=== PATIENT | female | born 1995 | race Caucasian/White ===

== ENCOUNTER 2017-11-12 15:27 | Emergency (ER) | payer OTHER ==
[~2017-11-12] VITALS: Ht 167.6 cm; Wt 76.4 kg
[2017-11-12 15:40] VITALS: BP 164/100; PULSE 92; RESP 18; TEMP 97.5; O2SAT 100
[2017-11-12] MEDS ORDERED: SODIUM CHLOR 0.9% 1000 ML INJ 1,000 ML IV SCH (17:26)
[2017-11-12] MEDS ORDERED: LIDOCAINE VISCOUS 2% SOLN 15 ML UDC PO ONE (17:30)
[2017-11-12] MEDS ORDERED: ALUMINUM/MAGNESIUM/SIMETH 30 ML CUP PO ONE (17:30)
[2017-11-12] MEDS ORDERED: KETOROLAC TROMETHAMINE 30 MG/ML (IVP) VIAL IV PUSH ONE (17:30)
[2017-11-12] MEDS ORDERED: PANTOPRAZOLE SODIUM 40 MG VIAL IVP ONE (17:30)
[2017-11-12] MEDS ORDERED: ONDANSETRON HCL 4 MG/2 ML VIAL IVP ONE (17:30)
--- NOTE | 2017-11-12 17:33 | PD ---
HPI Chief Complaint: Flank/Kidney Pain Time Seen by Provider: 17:17 Travel History International Travel<30 days: No Contact w/Intl Traveler<30days: No Traveled to known affect area: No History of Present Illness HPI This is a 22-year-old otherwise healthy female who presents for evaluation. 5 days she has been expressing pain in her bilateral mid to lower back region. She reports that the pain is intermittent and sharp with no obvious aggravating or relieving factors. She reports occasionally the pain radiates in the left upper quadrant of the abdomen but not currently. She reports associated nausea and dizziness sensation. She was initially seen at her school clinic 5 days ago and prescribed Cipro for possible UTI although she reports that the urinalysis only showed a small amount of blood. Symptoms persisted so she was seen at an emergency room in [place] 3 days ago. There she underwent blood work and a CT of the renal pelvis without contrast. Reportedly her lab work was unremarkable. She was diagnosed with back pain and viral syndrome and prescribed another course of Cipro as well as Flexeril, Zofran, tramadol. She did not continue the medications filled and she presents today because symptoms have persisted. Denies vaginal bleeding or discharge, vomiting, diarrhea or constipation, fevers or chills, cough, congestion, rash, sore throat. She has no other complaints at this time. [facility] Past Medical History ?: Not LMP: 11/08/2017 Social History Alcohol Use: No Tobacco Use: No Allergies-Medications (Allergen,Severity, Reaction): Coded Allergies: No Known Allergies (Unverified , 11/12/17) Reported Meds & Prescriptions Reported Meds & Active Scripts Active No Active Prescriptions or Reported Medications Review of Systems Except as stated in HPI: all other systems reviewed are Neg Physical Exam Narrative GENERAL: Well-developed well-nourished female no acute distress SKIN: Warm and dry. HEAD: Atraumatic. Normocephalic. EYES: Pupils equal and round. No scleral icterus. No injection or drainage. ENT: No nasal bleeding or discharge. Mucous membranes pink and moist. NECK: Trachea midline. No JVD. CARDIOVASCULAR: Regular rate and rhythm. No murmur appreciated. RESPIRATORY: No accessory muscle use. Clear to auscultation. Breath sounds equal bilaterally. GASTROINTESTINAL: Abdomen soft, non-tender, nondistended. Hepatic and splenic margins not palpable. MUSCULOSKELETAL: No obvious deformities. No clubbing. No cyanosis. No edema. Normal gait. NEUROLOGICAL: Awake and alert. No obvious cranial nerve deficits. Motor grossly within normal limits. Normal speech. Data Data Last Documented VS Vital Signs Date Time Temp Pulse Resp B/P (MAP) Pulse Ox O2 Delivery O2 Flow Rate FiO2 11/12/17 15:40 97.5 92 18 164/100 (121) 100 Orders Orders Urinalysis - C+S If Indicated (11/12/17 15:43) Ed Urine Pregnancytest Poc (11/12/17 15:43) Complete Blood Count With Diff (11/12/17 17:26) Comprehensive Metabolic Panel (11/12/17 17:26) Lipase (11/12/17 17:26) Iv Access Insert/Monitor (11/12/17 17:26) Ondansetron Inj (Zofran Inj) (11/12/17 17:30) Pantoprazole Inj (Protonix Inj) (11/12/17 17:30) Sodium Chlor 0.9% 1000 Ml Inj (Ns 1000 M (11/12/17 17:26) Al-Mag Hy-Si 40-40-4 Mg/Ml Liq (Mag-Al P (11/12/17 17:30) Lidocaine 2% Viscous (Xylocaine 2% Visco (11/12/17 17:30) Ketorolac Inj (Toradol Inj) (11/12/17 17:30) Labs Laboratory Tests Test 11/12/17 16:02 11/12/17 17:46 Urine Color LIGHT-YELLOW Urine Turbidity CLEAR Urine pH 6.0 Urine Specific [place] 1.004 Urine Protein NEG mg/dL Urine Glucose (UA) NEG mg/dL Urine Ketones NEG mg/dL Urine Occult Blood NEG Urine Nitrite NEG Urine Bilirubin NEG Urine Urobilinogen LESS THAN 2.0 MG/DL Urine Leukocyte Esterase NEG Urine RBC LESS THAN 1 /hpf Urine WBC LESS THAN 1 /hpf Urine Squamous Epithelial Cells <1 /hpf Microscopic Urinalysis Comment CULT NOT INDICATED White Blood Count 7.2 TH/MM3 Red Blood Count 5.19 MIL/MM3 Hemoglobin 15.7 GM/DL Hematocrit 44.2 % Mean Corpuscular Volume 85.2 FL Mean Corpuscular Hemoglobin 30.3 PG Mean Corpuscular Hemoglobin Concent 35.6 % Red Cell Distribution Width 12.4 % Platelet Count 230 TH/MM3 Mean Platelet Volume 8.7 FL Neutrophils (%) (Auto) 54.1 % Lymphocytes (%) (Auto) 36.0 % Monocytes (%) (Auto) 8.0 % Eosinophils (%) (Auto) 1.6 % Basophils (%) (Auto) 0.3 % Neutrophils # (Auto) 3.9 TH/MM3 Lymphocytes # (Auto) 2.6 TH/MM3 Monocytes # (Auto) 0.6 TH/MM3 Eosinophils # (Auto) 0.1 TH/MM3 Basophils # (Auto) 0.0 TH/MM3 CBC Comment DIFF FINAL Differential Comment Blood Urea Nitrogen 10 MG/DL Creatinine 1.01 MG/DL Random Glucose 81 MG/DL Total Protein 8.4 GM/DL Albumin 4.4 GM/DL Calcium Level 9.5 MG/DL Alkaline Phosphatase 95 U/L Aspartate Amino Transf (AST/SGOT) 30 U/L Alanine Aminotransferase (ALT/SGPT) 25 U/L Total Bilirubin 1.1 MG/DL Sodium Level 140 MEQ/L Potassium Level 4.2 MEQ/L Chloride Level 106 MEQ/L Carbon Dioxide Level 24.7 MEQ/L Anion Gap 9 MEQ/L Estimat Glomerular Filtration Rate 69 ML/MIN Lipase 115 U/L MDM Medical Decision Making Medical Screen Exam Complete: Yes Emergency Medical Condition: Yes Medical Record Reviewed: Yes Differential Diagnosis Muscle spasm, gastritis, pyelonephritis, renal stone Narrative Course Physical examination is reassuring. She has no CVA tenderness. Her abdomen is soft and nontender. Reassuringly she had a CT of the renal pelvis without contrast performed 2 days ago and was unremarkable. Plan today is to provide her with IV fluids, GI cocktail, Protonix, Toradol and Zofran. Basic lab work and urinalysis have been ordered. Lab work has been reviewed and found to be unremarkable. CBC is unremarkable. CMP reveals a creatinine of 1.01, GFR 69, total protein 8.4 otherwise unremarkable. Urinalysis is completely unremarkable. Urine test is negative. Upon reexamination her pain is currently resolved. Her pain is most likely muscular however she does occasionally have left upper quadrant pain and so presumably this could be a atypical form of gastritis. I recommended that she follow-up with her primary care physician if symptoms persist. She is concerned that the pain may come back tomorrow. She does have prescriptions for tramadol, Flexeril, Zofran from the previous emergency room that she could try using symptoms return. She is stable for discharge from the emergency room standpoint. Diagnosis Primary Impression: Back pain Additional Impressions: Dizziness Nausea Additional Instructions: Please provide the patient a copy of all of her lab work upon discharge. Follow -up with primary care physician. Return for any emergent medical conditions. Med/Other Pt SpecificInfo: No Change to Meds Scripts No Active Prescriptions or Reported Meds Disposition: 01 DISCHARGE HOME Condition: Stable Vignesh Schneider Nov 12, 2017 17:33
[2017-11-12 17:37] LABS: BILIRUBIN, URINE NEG (NEG); BLOOD, URINE NEG (NEG); GLUCOSE,URINE NEG (NEG); KETONE, URINE NEG (NEG); NITRITE,URINE NEG (NEG); SQUAMOUS EPITHELIAL CELL URINE <1 /hpf (0-5); URINE COLOR LIGHT-YELLOW (YELLW/STRAW); URINE LEUKOCYTE ESTERASE NEG (NEG)
[2017-11-12 18:29] LABS: AUTOMATED NEUTROPHIL # 3.9 TH/MM3 (1.8-7.7); BASOPHIL % 0.3 % (0.0-2.0); EOSINOPHIL # 0.1 TH/MM3 (0-0.4); EOSINOPHIL % 1.6 % (0.0-4.0); HEMATOCRIT 44.2 % (35.0-46.0); HEMOGLOBIN 15.7 GM/DL (11.6-15.3); LYMPHOCYTE # 2.6 TH/MM3 (1.0-4.8); MEAN CELL VOLUME 85.2 FL (80.0-100.0); MEAN CORPUSCULAR HEMOGLOBIN 30.3 PG (27.0-34.0); MEAN CORPUSCULAR HGB CONC 35.6 % (32.0-36.0); MEAN PLATELET VOLUME 8.7 FL (7.0-11.0); MONOCYTE # 0.6 TH/MM3 (0-0.9); NEUT % 54.1 % (16.0-70.0); PLATELET COUNT 230 TH/MM3 (150-450); RED BLOOD COUNT 5.19 MIL/MM3 (4.00-5.30); RED CELL DISTRIBUTION WIDTH 12.4 % (11.6-17.2); WHITE BLOOD COUNT 7.2 TH/MM3 (4.0-11.0)
[2017-11-12 18:47] LABS: ALBUMIN 4.4 GM/DL (3.4-5.0); AST (GOT) 30 U/L (15-37); BICARBONATE 24.7 MEQ/L (21.0-32.0); BLOOD UREA NITROGEN 10 MG/DL (7-18); CALCIUM 9.5 MG/DL (8.5-10.1); CREATININE 1.01 MG/DL (0.50-1.00); GLOMERULAR FILTRATION RATE 69 ML/MIN (>89); GLUCOSE,RANDOM 81 MG/DL (74-106)
[2017-11-12 18:48] LABS: ALT (GPT) 25 U/L (10-53)
[2017-11-12 19:14] LABS: ALKALINE PHOSPHATASE 95 U/L (45-117); CHLORIDE 106 MEQ/L (98-107); SODIUM (NA) 140 MEQ/L (136-145); TOTAL BILIRUBIN ADULT 1.1 MG/DL (0.2-1.0); TOTAL PROTEIN 8.4 GM/DL (6.4-8.2)
== END 2017-11-12 20:05 | disposition home or self-care (01) ==
LOC: NEPC 15:27
DX: M54.9 Dorsalgia, unspecified (principal); R42 Dizziness and giddiness; R11.0 Nausea
CPT/HCPCS: 80053; 81001; 83690; 84703; 85025; 96374; 96375; 99284; C9113; J1885; J2405; J7030